=== PATIENT | male | born 1950 | race Caucasian/White ===

== ENCOUNTER 2021-05-04 07:04 | Emergency (ER) | payer MEDICARE, OTHER ==
[~2021-05-04] VITALS: Ht 180.3 cm; Wt 95.2 kg
[2021-05-04] MEDS ORDERED: Voltaren100 GM TOP (10:26)
== END 2021-05-04 10:34 | disposition home or self-care (01) ==
LOC: ER 07:04
DX: M16.0 Bilateral primary osteoarthritis of hip (principal); G89.29 Other chronic pain; M47.897 Other spondylosis, lumbosacral region; E11.9 Type 2 diabetes mellitus without complications; I10 Essential (primary) hypertension; Z95.1 Presence of aortocoronary bypass graft
CPT/HCPCS: 73502; 99283-25